=== PATIENT | female | born 2000 | race Caucasian/White ===

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

== ENCOUNTER 2020-03-17 14:20 | Emergency (ER) | payer MEDICAID, OTHER ==
[~2020-03-17] VITALS: Ht 160 cm; Wt 75.0 kg
[2020-03-17 14:57] VITALS: BP 136/62
== END 2020-03-17 19:15 | disposition left against medical advice (07) ==
LOC: ER 14:20
DX: Z53.21 Procedure and treatment not carried out due to patient leaving prior to being seen by health care provider (principal)